=== PATIENT | female | born 1995 | race Caucasian/White ===

== ENCOUNTER 2017-06-20 14:02 | Inpatient (IN) | payer MEDICAID ==
[2017-06-20] MEDS ORDERED: LACTATED RINGER'S 1,000 ML IV (15:00)
[2017-06-20] MEDS: LACTATED RINGER'S 1,000 ML IV ×2 (15:28→20:39)
[2017-06-20] MEDS ORDERED: LIDOCAINE 1% (MPF) 30 ML INJ INJ (15:30)
[2017-06-20] MEDS ORDERED: METHYLERGONOVINE 0.2 MG INJ IM (15:30)
[2017-06-20] MEDS ORDERED: CARBOPROST 250 MCG INJ IM (15:30)
[2017-06-20] MEDS ORDERED: OXYTOCIN 30 UNITS/LR 500 ML IV (15:30)
[2017-06-20] MEDS ORDERED: BUTORPHANOL 2 MG INJ IV (15:30)
[2017-06-20] MEDS ORDERED: MISOPROSTOL 200 MCG TAB PR (15:30)
[2017-06-20 15:59] LABS: ADD MAN DIFF? NO
[2017-06-20 16:01] LABS: BASOPHILS % 0.4 % (0.0-2.0); EOSINOPHILS # 0.1 10^3/ul (0.0-0.5); HEMOGLOBIN 12.5 g/dl (12.0-16.0); LYMPHOCYTES # 1.4 10^3/ul (0.8-2.9); LYMPHOCYTES % 18.2 % (15.0-51.0); MEAN CORPUSCULAR HEMOGLOBIN 29.7 pg (29.0-33.0); MEAN CORPUSCULAR HGB CONC 34.7 g/dl (32.0-37.0); MEAN CORPUSCULAR VOLUME 85.5 fl (82.0-101.0); MONOCYTE # 0.7 10^3/ul (0.3-0.9); MONOCYTES % 9.5 % (0.0-11.0); NEUTROPHIL # 5.5 10^3/ul (1.6-7.5); NEUTROPHILS % 70.3 % (39.0-77.0); PLATELET COUNT 216 10^3/UL (140-415); RED BLOOD COUNT 4.21 10^6/ul (4.20-5.40); RED CELL DISTRIBUTION WIDTH 12.7 % (11.5-14.5)
[2017-06-20 16:01] LABS: WHITE BLOOD COUNT 7.8 10^3/ul (4.8-10.8)
[2017-06-20 16:06] LABS: ADD UMIC YES; UR ASCORBIC ACID NEGATIVE (NEGATIVE); UR BACTERIA FEW /HPF (NONE SEEN); UR BILIRUBIN (Dip) NEGATIVE (NEGATIVE); UR BLOOD (Dip) NEGATIVE (NEGATIVE); UR CLARITY SLIGHTLY CLOUDY (CLEAR); UR COLOR YELLOW (YELLOW); UR GLUCOSE (Dip) NEGATIVE (NEGATIVE); UR KETONES (Dip) NEGATIVE (NEGATIVE); UR LEUKOCYTE ESTERASE (Dip) 1+ Leu/ul (NEGATIVE); UR NITRITE (Dip) NEGATIVE (NEGATIVE); UR RBC 1 /HPF (0-5); UR SPECIFIC GRAVITY (Dip) 1.021 (1.003-1.030); UR SQUAMOUS EPITHELIAL CELL MODERATE /HPF (FEW); UR TOTAL PROTEIN (Dip) NEGATIVE (NEGATIVE); UR UROBILINOGEN (Dip) NEGATIVE (NEGATIVE); UR WBC 38 /HPF (0-5)
[2017-06-20 16:24] LABS: AMPHETAMINE/METHAMPHETAMINE Negative (NEGATIVE); BARBITURATES Negative (NEGATIVE)
[2017-06-20 16:25] LABS: BENZODIAZEPINES Negative (NEGATIVE); CANNABINOIDS Negative (NEGATIVE); COCAINE Negative (NEGATIVE); OPIATES Negative (NEGATIVE); PARTIAL THROMBOPLASTIN TIME 27.5 Sec (25.0-35.0); PROTIME 12.2 Sec (11.9-14.9)
[2017-06-20] MEDS: DINOPROSTONE 10 MG VAG SUPP VAG (16:30)
[2017-06-20 17:02] LABS: HEPATITIS B SURFACE ANTIGEN NEGATIVE (NEGATIVE)
[2017-06-20 17:12] LABS: HIV 1&2 ANTIBODY NEGATIVE (NEGATIVE)
[2017-06-20] MEDS: AMPICILLIN 2 GM/NS (PMX) 100 ML IV (17:14)
[2017-06-20] MEDS ORDERED: AMPICILLIN 1 GM/NS (PMX) 50 ML IV (19:30)
[2017-06-20] MEDS: AMPICILLIN 1 GM/NS (PMX) 50 ML IV (20:40)
[2017-06-20 22:11] LABS: RAPID PLASMA REAGIN NONREACTIVE (NR)
[2017-06-21] MEDS: AMPICILLIN 1 GM/NS (PMX) 50 ML IV ×5 (00:39→17:10)
[2017-06-21] MEDS: OXYTOCIN 30 UNITS/LR 500 ML IV ×5 (03:14→22:36)
[2017-06-21] MEDS: LACTATED RINGER'S 1,000 ML IV ×3 (07:06→11:50)
[2017-06-21] MEDS ORDERED: FENTAnyl 2MCG/ML-ROPIV 0.2% 100 ML (11:36)
[2017-06-21] MEDS ORDERED: NALOXONE (0.4 MG/ML) INJ IV (12:00)
[2017-06-21] MEDS: FENTAnyl 2MCG/ML-ROPIV 0.2% 100 ML BAG EPI (19:51)
[2017-06-21] MEDS: IBUPROFEN 600 MG TAB PO (19:55)
[2017-06-21] MEDS ORDERED: DIBUCAINE 1% 30 GM OINT PR ×2 (21:00)
[2017-06-21] MEDS ORDERED: METHYLERGONOVINE 0.2 MG INJ IM ×2 (21:00)
[2017-06-21] MEDS ORDERED: OXYTOCIN 30 UNITS/LR 500 ML IV ×2 (21:00)
[2017-06-21] MEDS ORDERED: BENZOCAINE 20% 56 ML SPRAY TOP (21:00)
[2017-06-21] MEDS ORDERED: MISOPROSTOL 200 MCG TAB PR ×2 (21:00)
[2017-06-21] MEDS ORDERED: OXYCODONE/ASPIRIN (4.88/325) TAB PO ×3 (21:00)
[2017-06-21] MEDS ORDERED: IBUPROFEN 600 MG TAB PO (21:00)
[2017-06-21] MEDS ORDERED: LANOLIN 7 GM TUBE TOP (21:00)
[2017-06-21] MEDS ORDERED: SENNA/DOCUSATE NA (8.6MG/50MG) TAB PO ×2 (21:00)
[2017-06-21] MEDS ORDERED: WITCH HAZEL/GLYCERIN PAD PR (21:00)
[2017-06-21] MEDS ORDERED: ACETAMINOPHEN 500 MG TAB PO ×2 (21:00)
[2017-06-21] MEDS ORDERED: CARBOPROST 250 MCG INJ IM ×2 (21:00)
[2017-06-21] MEDS: WITCH HAZEL/GLYCERIN PAD PR (21:22)
[2017-06-21] MEDS: LANOLIN 7 GM TUBE TOP (21:22)
[2017-06-21] MEDS: BENZOCAINE 20% 56 ML SPRAY TOP (21:22)
[2017-06-21] MEDS: OXYCODONE/ASPIRIN (4.88/325) TAB PO (21:23)
[2017-06-22] MEDS: OXYTOCIN 30 UNITS/LR 500 ML IV ×6 (00:56→20:56)
[2017-06-22] MEDS: IBUPROFEN 600 MG TAB PO (05:35)
[2017-06-22 07:19] LABS: ADD MAN DIFF? NO
[2017-06-22 07:28] LABS: WHITE BLOOD COUNT 11.9 10^3/ul (4.8-10.8)
[2017-06-22 07:28] LABS: BASOPHILS % 0.1 % (0.0-2.0); EOSINOPHILS # 0.2 10^3/ul (0.0-0.5); EOSINOPHILS % 1.3 % (0.0-7.0); HEMATOCRIT 32.9 % (37.0-47.0); HEMOGLOBIN 11.3 g/dl (12.0-16.0); LYMPHOCYTES # 2.2 10^3/ul (0.8-2.9); LYMPHOCYTES % 18.3 % (15.0-51.0); MEAN CORPUSCULAR HEMOGLOBIN 29.4 pg (29.0-33.0); MEAN CORPUSCULAR HGB CONC 34.3 g/dl (32.0-37.0); MEAN CORPUSCULAR VOLUME 85.7 fl (82.0-101.0); MEAN PLATELET VOLUME 11.7 fl (7.4-10.4); MONOCYTE # 1.5 10^3/ul (0.3-0.9); MONOCYTES % 12.3 % (0.0-11.0); NEUTROPHIL # 8.1 10^3/ul (1.6-7.5); NEUTROPHILS % 67.5 % (39.0-77.0); PLATELET COUNT 207 10^3/UL (140-415); RED BLOOD COUNT 3.84 10^6/ul (4.20-5.40); RED CELL DISTRIBUTION WIDTH 13.1 % (11.5-14.5)
[2017-06-23] MEDS: OXYTOCIN 30 UNITS/LR 500 ML IV ×3 (00:56→06:23)
[2017-06-23] MEDS: IBUPROFEN 600 MG TAB PO (05:31)
[2017-06-23] MEDS ORDERED: DIPHTH/TET/ACEL PERTUSS (ADULT) 0.5 ML VIAL IM* (09:00)
[2017-06-23] MEDS: DIPHTH/TET/ACEL PERTUSS (ADULT) 0.5 ML VIAL IM* (09:58)
== END 2017-06-23 12:54 | disposition home or self-care (01) | DRG 775 ==
LOC: OBT 14:02 → PP1 06-21 20:35 → L-D 14:03 → OBT 15:58 → L-D 15:30
PROC: 3E033VJ Introduction of Other Hormone into Peripheral Vein, Percutaneous Approach (ICD-10-PCS; 2017-06-20)
PROC: 10E0XZZ Delivery of Products of Conception, External Approach (ICD-10-PCS; principal; 2017-06-21)
DX: O41.03X0 Oligohydramnios, third trimester, not applicable or unspecified (principal); O63.1 Prolonged second stage (of labor); O36.8130 Decreased fetal movements, third trimester, not applicable or unspecified; O69.1XX0 Labor and delivery complicated by cord around neck, with compression, not applicable or unspecified; O77.0 Labor and delivery complicated by meconium in amniotic fluid; Z3A.40 40 weeks gestation of pregnancy; Z37.0 Single live birth
CPT/HCPCS: 36415; 62319; 76815; 76818; 80307; 81001; 85025; 85610; 85730; 86592; 86703; 86762; 86850; 86900; 86901; 87340; 99464